=== PATIENT | male | born 1985 | race Two or more races ===

== ENCOUNTER 2018-08-28 11:49 | Emergency (ER) | payer SELFPAY ==
[~2018-08-28] VITALS: Ht 185.4 cm; Wt 122.5 kg
[2018-08-28 12:22] VITALS: BP 136/74
[2018-08-28] MEDS ORDERED: SUDAFED PE PRE1 EAC3 PO (12:30)
[2018-08-28] MEDS ORDERED: FLONASE ALLERG9.9 ML NS (12:30)
--- NOTE | 2018-08-28 12:30 | Emergency Room Report ---
History of Present Illness General Chief Complaint: Upper Respiratory Illness Source: Patient Present Illness HPI 33-year-old male patient presents the ER complaining of sinus congestion for the past 2 days. Reports headache symptoms during this time due to "all the blowing my nose". Reports difficulty breathing out of his nose secondary to congestion. Denies fever, chest pain, shortness of breath. Denies vomiting. Reports attempted use of Afrin one time yesterday, states does not use any other medications for relief of symptoms. Denies vomiting or diarrhea. Denies sore throat or cough. States history of similar symptoms in the past, states usually occurs during this time of the year. Denies vertigo. Denies tinnitus. Allergies: Coded Allergies: Cultivated Oat Pollen (Verified Allergy, Unknown, 08/28/18) Patient History Past Medical History: see triage record Reviewed Nursing Documentation: PMH: Agreed; PSxH: Agreed Nursing Documentation-PMH Past Medical History: No Stated History Review of Systems All Other Systems: negative except mentioned in HPI Physical Exam Vital Signs Date Time Temp Pulse Resp B/P (MAP) Pulse Ox O2 Delivery O2 Flow Rate FiO2 08/28/18 12:14 97.9 70 18 138/77 98 Room Air Sp02 EP Interpretation: reviewed, normal General Appearance: well appearing, no apparent distress, alert, GCS 15, non- toxic Head: normocephalic, atraumatic, other - Mild tenderness to palpation over medial maxillary sinuses bilaterally Eyes: bilateral eye normal inspection, bilateral eye PERRL ENT: hearing grossly normal, normal pharynx, no angioedema, normal voice, TMs + canals normal, uvula midline, moist mucus membranes, nasal congestion Neck: full range of motion, no meningismus Respiratory: lungs clear, normal breath sounds, no rhonchi, no respiratory distress, no accessory muscle use, no wheezing, speaking full sentences Cardiovascular #1: regular rate, rhythm, no edema Musculoskeletal: back normal, digits/nails normal, gait/station normal, normal range of motion, non-tender Neurologic: alert, oriented x3, responsive, head of mobile III-XII nml as tested, motor strength/tone normal, sensory intact, cerebellar normal, normal gait, speech normal Psychiatric: mood/affect normal Skin: no rash Lymphatic: no adenopathy Medical Decision Making PA Attestation Dr. Bell is my supervising Physician whom patient management has been discussed with. Diagnostic Impression: Primary Impression: Acute rhinosinusitis ER Course Pt presents to ED c/o sinus infection x2 days. DDX considered but are not limited to s influenza, viral URI, pneumonia, strep throat, rhinitis, sinusitis, otitis media, migraine, sinus MENDEZ. VITAL SIGNS are WNL, patient is afebrile. ER COURSE: Exam consistent with viral rhinosinusitis, does not require antibiotics at this time. Will provide patient with outpatient treatment. Follow with primary care provider. Discussed referral to specialist. Advised on use of humidifier. Drink plenty of fluids. ER precautions given. DISCHARGE: At this time pt is stable for d/c to home. Patient is in no acute distress, nontoxic appearing. Patient to take medications as instructed Will provide with patient care instructions and any necessary prescriptions. Care plan and follow-up instructions provided. Patient instructed to follow-up with primary care provider in 3 - 5 days and discuss follow-up with dentist for any tooth pain. Patient questions asked and answered. ER precautions given. Patient instructed to return to ER immediately for any new or worsening of symptoms including but not limited to fever, facial weakness , difficulty speaking, difficulty breathing, difficulty swallowing. - Please note that this Emergency Department Report was dictated using [employer] operator technology software, occasionally this can lead to erroneous entry secondary to interpretation by the dictation equipment. Last Vital Signs Date Time Temp Pulse Resp B/P (MAP) Pulse Ox O2 Delivery O2 Flow Rate FiO2 08/28/18 12:22 98.1 68 18 136/74 98 Room Air Disposition: HOME, SELF-CARE Condition: Stable Scripts Guaifen/Phenyleph/Acetaminophn (Sudafed PE Pressure+Pain+Mucus) 1 Each Tablet 1 EACH PO TID, #24 TAB Prov: Adolfo Schulz P.Anabella 08/28/18 Fluticasone Propionate (Flonase Allergy Relief) 9.9 Ml [place].susp 9.9 ML NS BID, #9.9 ML Prov: Adolfo Schulz.Anabella 08/28/18 Patient Instructions: Allergic Rhinitis, Sinus Headache, [id number], Sinusitis, Adult, [id number] Additional Instructions: Followup with primary care provider in 3 -5 days. Discuss referral to specialist. Take medications as directed. Take OTC Tylenol for pain symptoms. Patient questions asked and answered. ER precautions given, patient instructed to return to ER immediately for any new or worsening of symptoms. Adolfo Schulz Aug 28, 2018 12:30
[2018-08-28 12:34] VITALS: BP 133/72
== END 2018-08-28 12:32 | disposition home or self-care (01) ==
LOC: EMR 12:25
DX: J01.90 Acute sinusitis, unspecified (principal)
CPT/HCPCS: 99283